=== PATIENT | male | born 1975 | race Hispanic/Latino ===

== ENCOUNTER 2023-01-27 16:03 | Emergency (ER) | payer SELFPAY ==
[2023-01-27] MEDS ORDERED: MORPHINE 4 MG/ML SYR ONE ×2 (16:27→17:53)
[2023-01-27] MEDS ORDERED: ONDANSETRON 4 MG (ODT) TAB ONE (16:28)
[2023-01-27] MEDS ORDERED: TDAP (DIPHTH,PERTUSS(ACELL),TET VAC) 0.5 ML VIAL IMVAC ONE (17:54)
--- NOTE | 2023-01-27 18:02 | RAD REPORT ---
EXAM DESCRIPTION: RAD - [facility] - 01/27/2023 4:43 pm COMPARISON: None. FINDINGS: Three views of the left hand. Small fracture and soft tissue defect at the tip of the distal phalanx second digit. There is no dislocation or periosteal reaction noted. Swelling along the second digit. No significant soft tissue gas or a radiopaque foreign body noted. IMPRESSION: Small fracture and a soft tissue defect at the tip of the distal phalanx second digit.
--- NOTE | 2023-01-27 19:12 | EDPHYS ---
Physician Documentation [facility] Name: Brandin Cardozo Jr Age: 47 yrs Sex: Male : 1975 Arrival Date: 01/27/2023 Time: 16:04 Bed 11 Private MD: ED Physician Ben Stinson HPI: 01/27 16:22 This 47 yrs old Male presents to ER via Ambulatory with complaints of Finger pm1 Injury. 16:22 The patient or guardian reports a laceration. The complaints affect the left index pm1 finger. Context: The problem was sustained at work, resulted from Accidentally cut finger on table saw. Onset: The symptoms/episode began/occurred just prior to arrival. Modifying factors: The symptoms are alleviated by pressure to area. 16:22 Associated signs and symptoms: The patient has no apparent associated signs or pm1 symptoms. Severity of symptoms: in the emergency department the symptoms have improved. The patient has experienced similar episodes in the past, a few times, to other fingers in the past. The patient has not recently seen a physician. 47-year-old male presents ER with complaints of table saw laceration injury to left second finger. Patient was turning off his table saw when the piece of wood started following, he instinctively tried to grab it to prevent it from falling and his left fingernail was impacted by the table saw resulting in laceration. Historical: - Allergies: 16:11 No Known Allergies; aa5 - PMHx: 16:11 None; aa5 - Immunization history:: Last tetanus immunization: unknown. - Social history:: Smoking status: Patient denies any tobacco usage or history of. ROS: 16:22 Constitutional: Negative for fever, chills, and weight loss. pm1 16:22 Neuro: Negative for headache, weakness, numbness, tingling, and seizure. 16:22 MS/extremity: Positive for laceration, pain, of the dorsal aspect of distal phalanx of left index finger. 16:22 Skin: Positive for laceration(s), of the dorsal aspect of distal phalanx of left index finger. 16:22 All other systems are negative. Exam: 16:22 Constitutional: This is a well developed, well nourished patient who is awake, alert, pm1 and in no acute distress. Head/Face: Normocephalic, atraumatic. 16:22 Cardiovascular: Exam negative for acute changes, Rate: normal, Rhythm: regular, Pulses: no pulse deficits are appreciated. 16:22 Respiratory: Exam negative for acute changes, respiratory distress, shortness of breath. 16:22 Musculoskeletal/extremity: Extremities: grossly normal except: noted in the dorsal aspect of distal phalanx of left index finger: laceration, Partial avulsion of fingernail, patient's nail intact in nail fold and rest was avulsed, ROM: intact in all extremities. 16:22 Neuro: Exam negative for acute changes, Orientation: is normal, Mentation: is normal, Motor: is normal, moves all fours. Vital Signs: 16:12 BP 170 / 119; Pulse 97; Resp 18 S; Temp 98.0(TE); Pulse Ox 95% on R/A; Weight 113.4 kg aa5 (R); Height 5 ft. 9 in. (175.26 cm) (R); 17:45 BP 186 / 118; Pulse 84; Resp 18; Pulse Ox 97% on R/A; eh3 18:00 BP 182 / 118; Pulse 86; Resp 18; Pulse Ox 98% on R/A; eh3 16:12 Body Mass Index 36.92 (113.40 kg, 175.26 cm) aa5 16:12 Pt restless during VS aa5 Laceration: 19:06 Wound Repair of 1cm ( 0.4in ) subcutaneous laceration to left index finger distal tip. pm1 Irregularly shaped.. Distal neuro/vascular/tendon intact. Anesthesia: Digital block administered with 3 mls of Lido/Marcaine. Wound prep: Extensive cleansing with betadine by me, Wound irrigation with saline by me, Wound explored extensively, Copious irrigation. Skin closed with 3 4-0 Prolene using simple sutures and sterile technique. Dressed with Neosporin, 4x4's, non-adherent dressing. Patient tolerated well. 19:06 Wound Repair of 1cm ( 0.4in ) avulsed laceration to left index nailbed. Irregularly pm1 shaped.. Distal neuro/vascular/tendon intact. Wound prep: Extensive cleansing with betadine by me, Wound explored extensively, Copious irrigation. Skin closed with 4 1-0 Vicryl using simple sutures and sterile technique. Dressed with Neosporin, non-adherent dressing. Patient tolerated well. MDM: 16:21 Patient medically screened. pm1 19:10 Data reviewed: vital signs. pm1 01/27 16:20 Order name: Hand Left 3 View XRAY; Complete Time: 18:03 pm1 01/27 18:04 Order name: Dressing - Wound; Complete Time: 19:40 pm1 01/27 18:04 Order name: Gloves, Sterile; Complete Time: 18:30 pm1 01/27 18:04 Order name: Prolene, Sutures; Complete Time: 18:30 pm1 01/27 18:04 Order name: Setup Suture Tray; Complete Time: 18:07 pm1 01/27 19:06 Order name: Finger Splint; Complete Time: 19:40 pm1 Administered Medications: 16:46 Drug: morphine 4 mg Route: IM; Site: left deltoid; aa5 17:45 Follow up: Response: Pain is unchanged, physician notified eh3 16:46 Drug: Ondansetron 4 mg Route: PO; aa5 17:45 Follow up: Response: No adverse reaction eh3 17:59 Drug: Tetanus-Diphtheria Toxoid Adult 0.5 ml {Automotive 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 Exp: eh3 10/15/2023. Lot #: [id number]. } Route: IM; Site: right deltoid; 18:07 Follow up: Response: (VIS) Vaccine information sheet provided today. Questions and/or 3 concerns addressed. VIS edition date: Jul 03, 2021.; No adverse reaction 17:59 Drug: morphine 4 mg Route: IM; Site: left deltoid; eh3 18:30 Follow up: Response: Pain is decreased eh3 18:30 Drug: Lidocaine (1 %) 5 ml {Note: administered by Zach Grullon CLINICAL DOCUMENTATION SPECIALIST.} Volume: 5 ml; eh3 Route: Infiltration; 18:31 Drug: Bupivacaine (0.5 %) 10 ml {Note: administered by Zach Grullon NP.} Volume: 10 eh3 ml; Route: Infiltration; Disposition Summary: 01/27/23 19:11 Discharge Ordered Location: Home pm1 Problem: new pm1 Symptoms: have improved pm1 Condition: Stable pm1 Diagnosis - Laceration without foreign body of left index finger with damage to nail pm1 - Distal tuft fracture left index finger pm1 Followup: pm1 - With: Emergency Department - When: As needed - Reason: Worsening of condition Followup: pm1 - With: Allan Wolfe MD - When: 2 - 3 days - Reason: Recheck today's complaints, Continuance of care, Re-evaluation by your physician Discharge Instructions: - Discharge Summary Sheet pm1 - Finger Fracture, Adult pm1 - Laceration Care, Adult pm1 Forms: - Medication Reconciliation Form pm1 - Thank You Letter pm1 - Antibiotic Education pm1 - Prescription Opioid Use pm1 Prescriptions: - Cephalexin 500 mg Oral Capsule - take 1 capsule by ORAL route every 6 hours for 10 days; 40 capsule; Refills: 0, pm1 Product Selection Permitted - Tylenol-Codeine #3 300 mg-30 mg Oral - take 2 tablet by ORAL route every 6 hours As needed; 20 tablet; Refills: 0, pm1 Product Selection Permitted Signatures: Dispatcher [employer] Neida Patton RN RN aa5 Zach Grullon NP CLINICAL DOCUMENTATION SPECIALIST pm1 Isabel Flaherty RN RN eh3
--- NOTE | 2023-01-27 19:12 | ER ---
Nurse's Notes [facility] Name: Brandin Cardozo Jr Age: 47 yrs Sex: Male : 1975 Arrival Date: 01/27/2023 Time: 16:04 Bed 11 Private MD: Diagnosis: Laceration without foreign body of left index finger with damage to nail;Distal tuft fracture left index finger Presentation: 01/27 16:12 Chief complaint: Patient states: "I cut my finger with a table saw". Partial amputation aa5 noted to tip of left index finger, moderate bleeding noted, bleeding controlled. 16:12 Acuity: NOY 2 aa5 16:12 Coronavirus screen: At this time, the client does not indicate any symptoms associated aa5 with coronavirus-19. Ebola Screen: Patient denies travel to an Ebola-affected area in the 21 days before illness onset. Initial Sepsis Screen: Does the patient meet any 2 criteria? No. Patient's initial sepsis screen is negative. Does the patient have a suspected source of infection? No. Patient's initial sepsis screen is negative. Risk Assessment: Do you want to hurt yourself or someone else? Patient reports no desire to harm self or others. Onset of symptoms was January 27, 2023. 16:12 Method Of Arrival: Ambulatory aa5 Triage Assessment: 17:45 General: Appears in no apparent distress. uncomfortable, Behavior is calm, cooperative, eh3 appropriate for age. Injury Description: Amputation sustained to palmar aspect of distal phalanx of left index finger and dorsal aspect of distal phalanx of left index finger is partial, was sustained 30-60 minutes ago. Historical: - Allergies: 16:11 No Known Allergies; aa5 - PMHx: 16:11 None; aa5 - Immunization history:: Last tetanus immunization: unknown. - Social history:: Smoking status: Patient denies any tobacco usage or history of. Screenin:45 [facility] ED Fall Risk Assessment (Adult) Score/Fall Risk Level 0 - 2 = Low Risk. Abuse eh3 screen: Denies threats or abuse. Denies injuries from another. Nutritional screening: No deficits noted. Tuberculosis screening: No symptoms or risk factors identified. Assessment: 17:45 General: Appears in no apparent distress. uncomfortable, Behavior is calm, cooperative, eh3 appropriate for age. Pain: Complains of pain in left index finger Pain radiates to left hand Pain currently is 8 out of 10 on a pain scale. Neuro: Level of Consciousness is awake, alert, obeys commands, Oriented to person, place, time, situation. Cardiovascular: Capillary refill < 3 seconds Patient's skin is warm and dry. Respiratory: Airway is patent Respiratory effort is even, unlabored, Respiratory pattern is regular, symmetrical. GI: Abdomen is round non-distended. : No signs and/or symptoms were reported regarding the genitourinary system. EENT: No signs and/or symptoms were reported regarding the EENT system. Derm: Skin is pink, warm \\T\\ dry. Wound noted dorsal aspect of distal phalanx of left index finger and palmar aspect of distal phalanx of left index finger. Musculoskeletal: Circulation, motion, and sensation intact. Range of motion: intact in all extremities. 18:45 Reassessment: Patient appears in no apparent distress at this time. Patient and/or eh3 family updated on plan of care and expected duration. Pain level reassessed. Patient is alert, oriented x 3, equal unlabored respirations, skin warm/dry/pink. Vital Signs: 16:12 BP 170 / 119; Pulse 97; Resp 18 S; Temp 98.0(TE); Pulse Ox 95% on R/A; Weight 113.4 kg aa5 (R); Height 5 ft. 9 in. (175.26 cm) (R); 17:45 BP 186 / 118; Pulse 84; Resp 18; Pulse Ox 97% on R/A; eh3 18:00 BP 182 / 118; Pulse 86; Resp 18; Pulse Ox 98% on R/A; eh3 16:12 Body Mass Index 36.92 (113.40 kg, 175.26 cm) aa5 16:12 Pt restless during VS aa5 ED Course: 16:04 Patient arrived in ED. am2 16:11 Gisselle Toro PA-C is PHCP. sb4 16:11 Ben Stinson MD is Attending Physician. sb4 16:11 Arm band placed on. aa5 16:12 Triage completed. aa5 16:17 Zach Grullon NP is PHCP. pm1 16:17 Ben Stinson MD is Attending Physician. pm1 16:44 Hand Left 3 View XRAY In Process Unspecified. EDMS 17:36 Isabel Flaherty, RN is Primary Nurse. eh3 17:45 Patient has correct armband on for positive identification. Bed in low position. Call eh3 light in reach. Side rails up X 1. Pulse ox on. NIBP on. Door closed. Noise minimized. Lights dimmed. Diet: Patient given water. Tolerated well. 18:30 Assist provider with laceration repair. eh3 19:00 Patient did not have IV access during this emergency room visit. eh3 19:10 Allan Wolfe MD is Referral Physician. pm1 Administered Medications: 16:46 Drug: morphine 4 mg Route: IM; Site: left deltoid; aa5 17:45 Follow up: Response: Pain is unchanged, physician notified eh3 16:46 Drug: Ondansetron 4 mg Route: PO; aa5 17:45 Follow up: Response: No adverse reaction eh3 17:59 Drug: Tetanus-Diphtheria Toxoid Adult 0.5 ml {Shortage Worker: [employer] Exp: 3 10/15/2023. Lot #: [id number]. } Route: IM; Site: right deltoid; 18:07 Follow up: Response: (VIS) Vaccine information sheet provided today. Questions and/or eh3 concerns addressed. VIS edition date: Jul 03, 2021.; No adverse reaction 17:59 Drug: morphine 4 mg Route: IM; Site: left deltoid; eh3 18:30 Follow up: Response: Pain is decreased eh3 18:30 Drug: Lidocaine (1 %) 5 ml {Note: administered by Zach Grullon NP.} Volume: 5 ml; eh3 Route: Infiltration; 18:31 Drug: Bupivacaine (0.5 %) 10 ml {Note: administered by Zach Grullon NP.} Volume: 10 eh3 ml; Route: Infiltration; Medication: 17:45 Vaccine Information Statement (VIS) provided today. Questions and/or concerns eh3 addressed. VIS edition date: July 03, 2021. Outcome: 19:11 Discharge ordered by . pm1 19:30 Discharged to home ambulatory. eh3 19:30 Condition: stable 19:30 Discharge instructions given to patient, Instructed on discharge instructions, follow up and referral plans. medication usage, Demonstrated understanding of instructions, follow-up care, medications. 19:40 Patient left the ED. eh3 Signatures: Dispatcher [employer] Neida Patton RN RN aa5 Zach Grullon, [employer] REPAIRER pm1 Genny Paniagua am2 Isabel Flaherty RN RN eh3 Gisselle Toro PA-C [employer] sb4 Corrections: (The following items were deleted from the chart) 16:18 16:12 Pulse 97bpm; Resp 18bpm; Spontaneous; Pulse Ox 95% RA; Temp 98.0F Temporal; 113.4 aa5 kg Reported; Height 5 ft. 9 in. Reported; BMI: 36.9; aa5 18:31 18:31 Bupivacaine (0.5 %) 10 ml 10 ml Infiltration 10 ml 3 3
[2023-01-27 20:06] VITALS: O2SAT 98
[2023-01-27 20:11] VITALS: BP 126/85; TEMP 98.1
== END 2023-01-27 19:40 | disposition home or self-care (01) ==
LOC: ER 16:03
PROC: 0HQGXZZ Repair Left Hand Skin, External Approach (ICD-10-PCS; principal; 2023-01-27)
DX: S61.311A Laceration without foreign body of left index finger with damage to nail, initial encounter (principal); S62.631A Displaced fracture of distal phalanx of left index finger, initial encounter for closed fracture; Z23 Encounter for immunization
CPT/HCPCS: 90471; 96372; 99284; Q0162

== ENCOUNTER 2023-02-12 16:20 | Emergency (ER) | payer SELFPAY ==
--- OUTSIDE RECORDS SUMMARY | 2023-02-12 16:26 | XMS REPORT | Continuity of Care Document ---
:1975 Author Organization [facility] t Address [address] [facility] [address] [place] [address] Care Team Providers Name Role Phone Deena Pichardo Attending Clinician Unavailable Ralph Crenshaw Attending Clinician Unavailable MICHELLE RAINES D.O. Attending Clinician Unavailable ELIZABETH JUDGE Admitting Clinician Unavailable Payers Payer Name Policy Type Policy Number Effective Date Expiration Date S ource Problems This patient has no known problems. Allergies, Adverse Reactions, Alerts Allergy Allergy Status Severity Reaction(s) Onset Inactive Treating Comm ents Source Name Type Date Date Clinician No Known DA Active U 2020-11 [facility] Allergie 01-19 [facility] 00:00: [facility] 00 are [place] Medications This patient has no known medications. Procedures This patient has no known procedures. Encounters Start End Encounter Admission Attending Care Care Encounter Source Date/Time Date/Time Type Type Clinicians Facility Department ID 2022-03-11 2022-03-11 Emergency EM KEYSHA Pichardo [id number] [facility] 18:01:00 18:58:00 Deena Gill [facility] are [place] 2021-11-18 2021-11-18 Emergency EM KEYSHA Crenshaw [id number] [facility] 04:45:00 07:15:00 Ralph Gill [facility] are [place] 2018-12-06 2018-12-06 Emergency E [facility] [id number] [facility] 12:56:00 12:56:00 2017-11-02 2017-11-02 [facility] [id number] [place] 09:30:00 09:30:00 t; MICHELLE RAINES, Surgery Physi ci Gerry MARTINEZ Specialty ans D.O. Results Test Description Test Time Test Comments Results Result Comments Source RAPID PLASMA REAGIN 2022-03-11 19:49:00 Test Item Value Reference Range Interpretation Comme nts RAPID PLASMA REAGIN (test code = RPR) NONREACTIVE NONREACTIVE URINALYSIS [id number] 07:10:00 Test Item Value Reference Range Interpretation Comments UA COLOR (test code = Yellow YELLOW COLU) UA APPEARANCE (test CLEAR CLEAR code = APPU) UA GLUCOSE DIPSTICK 3+ MG/DL NEGATIVE A (test code = DGLUU) UA BILIRUBIN DIPSTICK NEG NEGATIVE (test code = BILU) UA KETONE DIPSTICK TRACE MG/DL NEGATIVE A (test code = KETU) UA SPECIFIC GRAVITY 1.028 1.000-1.030 (test code = SGU) UA BLOOD DIPSTICK 2+ NEGATIVE A (test code = PAPO) UA PH DIPSTICK (test 5.5 4.5-8.5 code = KAIN) UA PROTEIN DIPSTICK 1+ MG/DL NEGATIVE A (test code = PROU) UA UROBILINOGEN NORMAL EU/dL See_Comment [Automated DIPSTICK (test code = messag e] The system URO) which generated this result transmitted reference range : <=1.0. The reference range was not used to interpret this result as normal/abnormal . UA NITRITE DIPSTICK NEG NEGATIVE (test code = ASHLEY) UA LEUKOCYTE ESTERASE NEG NEGATIVE DIPSTICK (test code = LEUU) UA WBC (test code = 0-3 /HPF 0-3 WBCU) UA RBC (test code = 10-20 /HPF 0-3 A RBCU) UA BACTERIA (test NONE SEEN /HPF NONE SEEN code = BACU) UA SQUAMOUS CELLS NONE SEEN /HPF NONE-FEW (test code = SQU) UA MUCUS (test code = RARE /LPF NONE-FEW MUCU) CBC W/AUTO [id number] 06:41:00 Test Item Value Reference Range Interpretation Comments WHITE BLOOD CELL (test code = WBC) 8.77 K/mm3 5.0-12.0 N RED BLOOD CELL (test code = RBC) 6.24 M/mm3 4.70-6.10 H HEMOGLOBIN (test code = HGB) 15.7 G/DL 14.0-18.0 N HEMATOCRIT (test code = HCT) 47.6 % 38.8-50.0 N MEAN CELL VOLUME (test code = MCV) 76 fL 80-94 L MEAN CELL HGB (test code = MCH) 25.2 PGM 27-31 L MEAN CELL HGB CONCENTRATION (test 33.0 G/DL 33-37 N code = MCHC) RED CELL DISTRIBUTION WIDTH (test 13.6 % 11.6-16.2 N code = RDW) PLATELET COUNT (test code = PLT) 267 K/mm3 130-400 N MEAN PLATELET VOLUME (test code = 9.5 fl 7.4-10.4 N MPV) NEUTROPHIL % (test code = NT%) 83.7 % 43-65 H IMMATURE GRANULOCYTE % (test code 0.7 % 0.0-2.0 N = IG%) LYMPHOCYTE % (test code = LY%) 5.9 % 20.5-45.5 L MONOCYTE % (test code = MO%) 8.1 % 5.5-11.7 N EOSINOPHIL % (test code = EO%) 0.8 % 0.9-2.9 L BASOPHIL % (test code = BA%) 0.8 % 0.2-1.0 N NUCLEATED RBC % (test code = 0.0 % 0-1.0 N NRBC%) NEUTROPHIL # (test code = NT#) 7.34 K/mm3 2.2-4.8 H LYMPHOCYTE # (test code = LY#) 0.52 K/mm3 1.3-2.9 L MONOCYTE # (test code = MO#) 0.71 K/mm3 0.3-0.8 N EOSINOPHIL # (test code = EO#) 0.07 K/MM3 0.0-0.2 N BASOPHIL # (test code = BA#) 0.07 K/mm3 0.0-0.1 N - CT ABD PELVIS W/O [id number] 06:25:00 [facility] : 1975 Sex: MPatientName: ALBINA VELASCO Unit No: [id number] EXAMS: CPT: [id number] CT ABD PELVIS W/O CONT [id number] CT abdomen and pelvis without contrast, 11/18/2021. Clinical: Right flank pain. Comment: Noncontrast transaxial plus sagittal/coronal reformatted images were obtained. The lung bases are free of active disease. The liver, spleen, adrenal glands, pancreas, aorta and IVC appear within normal limits. There are multiple right renal stones, the largest measuring 9 mm. There is mild right hydronephrosis/hydroureter secondary to a 1 mm distal ureteral stone. No left renal or perirenal abnormalities are detected. The gallbladder is identified. There is no biliary duct dilatation, ascites or significant retroperitoneal lymphadenopathy. There is no gastric distention, small bowel obstruction or right lower quadrantinflammatory changes. The colon is nondistended. The bladder is decompressed. The regional skeleton is intact. All CT scans at this facility are performed using dose optimization techniques including the following: Automated exposure control. IMPRESSION: Right nephrolithiasis. Minimal right hydronephrosis/hydroureter secondary to a tiny distal ureteral stone. at 0625 Reported and signed by: Bandar Delgadillo MD CC: Ralph Crenshaw MD; UndefinedProvider Technologist: Isidro Kline CTDI: 17.10 DLP: 1033.80Trscr Dt/Tm: 11/18/2021 (0625) by:[email or web address] Orig Print D/T: S: 11/18/2021 (0628) BATCH NO: N/A Name: ALBINA VELASCO [facility] [place] Phys: [email or web address] - Ralhp Crenshaw MD [address] [facility] : 1975 Age: 46 Sex: M [place] Loc: T.ERS Exam Date: 11/18/2021 Status: REG ER PH: FAX: PAGE 1 Signed ReportCoronavirus 2019 nCoV [id number] 06:17:00 Test Item Value Reference Range Interpretation Comments Coronavirus 2019 Positive NEGATIVE A Critical Va lue reported nCoV Bedside (test toFirst N yamila:YU Last code = 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 THE ID NO W COVID-19 EUA HAS NOT BEE N FDA CLEARED ORAPPROVED. IT HAS BEEN AUTHORIZED BY T [facility] UNDER ANEMERGENCY USE AUTHORIZATION F OR USE BY AUTHORIZEDLABOR ATORIES AND PATIENT [facility]ARE [facility]. THE TEST HAS BEENAU THORIZED ONLY FOR THE DETECTI ON OF NUCLEIC ACID FROMSARS-C oV-2, NOT FOR ANY OTHER VIRUS ES OR PATHOGENS, AND ISONLY AUTHORIZED FOR THE DURATION OF THE DECLARAT ION THATCIRCUMSTANC ES EXIST JUSTIFYING THE AUTHORIZATION OFEMERGENCY USE OF IN VITRO DIAGNOSTIC TEST S FOR DETECTIONAND/OR DIAGNOSIS OF COVID-19 UNDER SECTION 564(B)(1) OF U.[place]C. 360bbb-3 (b)(1), UNLESS THE AUTH ORIZATION ISTERMINATED OR REVOKED SOONER.Negative results should be treat ed as presumptive and , ifinconsistent with clinical signs and sympt oms or necessaryfor pa tient managmeent, alan uld be tested with differenta uthorizd or cleared molecul ar tests. Negative result s donot preclude SARS-C ov-2 infection and s hould not be used asthe sole basis for patient managem ent decisions. Nega tiveresults should be consi dered in the context of a pa tient'srecent exposures, hist ory and presence of cli nical signs andsymptons con sistent with COVID-19. COMPREHENSIVE METABOLIC [id number] 06:06:00 Test Item Value Reference Range Interpretation Comments SODIUM (test code = 137 mmol/L 136-145 N NA) POTASSIUM (test 3.4 mmol/L 3.4-4.5 N code = K) CHLORIDE (test code 103 mmol/L 98-107 N = CL) CARBON DIOXIDE 26 mmol/l 20-31 N (test code = CO2) GLUCOSE (test code 259 mg/dL 74-106 H = GLU) BLOOD UREA NITROGEN 12 mg/dL 9-23 N (test code = BUN) GLOMERULAR >=60 max >60 The estimated FILTRATION RATE estimate glomerular (test code = GFR) filtration rate is computed usingpatient ra ce, age (>18), sex, and serum creatinin e. If anyof the ne eded data elements a re missing the Laboratory julianne ot compute an estimation of t he glomerular filtration rate . CREATININE (test 1.11 mg/dL 0.70-1.30 N code = CREAT) TOTAL PROTEIN (test 7.3 g/dL 5.7-8.2 N code = PROT) ALBUMIN (test code 4.3 g/dl 3.4-5.0 N = ALB) CALCIUM (test code 9.7 mg/dL 8.7-10.4 N = CA) BILIRUBIN TOTAL 0.6 mg/dL 0.3-1.2 N (test code = BILT) SGOT/AST (test code 32 U/L 0-34 N = AST) SGPT/ALT (test code 31 U/L 10-49 N = ALT) ALKALINE 90 U/L 46-116 N PHOSPHATASE (test code = ALKP) [id number] 06:06:00 Test Item Value Reference Range Interpretation Comments PHOSPHOROUS (test code = PHOS) 2.7 mg/dL 2.4-5.1 N [id number] 06:06:00 Test Item Value Reference Range Interpretation Comments MAGNESIUM (test code = MAG) 1.7 mg/dL 1.6-2.6 N - XR SINUSES [id number] 05:26:00 [facility] : 1975 Sex: MPatientName: ALBINA VELASCO Unit No: [id number] EXAMS: CPT: [id number] XR SINUSES 3+V 06436 Paranasal sinuses, 4 views, 11/18/2021. Clinical: Sinus pressure. Comment: There is a retention cyst and/or polyp arising off the roof of the right antrum. There is mucosal thickening along the anterolateral wall ofthe right antrum. No air-fluid levels are present. The other visualized paranasal sinuses and mastoid s are well pneumatized. The regional skeleton is intact. The sella turcica appears of normal size and shape. IMPRESSION: Partial opacification of the right antrum as described above. at 0526 Reported and signed by: Bandar Delgadillo MD CC: Ralph Crenshaw MD; Undefined Provider Technologist: Negrito Rivera Fluoro Time: DAP (Gy m2): Air Kerma (mGy): Trscr Dt/Tm: 11/18/2021 (05) by:[email or web address] Orig Print D/T: S: 11/18/2021 (0529) BATCH NO: N/A Name: ALBINA VELASCO [facility] [employer] Phys: [email or web address] - Ralph Crenshaw MD [address] [facility] : 1975 Age: 46 Sex: [place] Loc: [facility] Exam Date: 11/18/2021 Status: REG ERPH: FAX: PAGE 1 Signed Report- XR CHEST 2 [id number] 05:24:00 [facility] : 1975 Sex: MPatientName: ALBINA VELASCO Unit No: [id number] EXAMS: CPT: [id number] XR CHEST 2 V [id number] CHEST 2 VIEWS, 11/18/2021. COMPARISON: None. CLINICAL: Cough. Dizziness. COMMENT: The heart, mediastinum, hilar regions and pulmonary vasculature appear within normal limits. The lungs are free of active disease. The bony thorax is intact. IMPRESSION: No evidence to suggest active cardiopulmonary disease. at 0524 Reported and signed by: Bandar Delgadillo MD CC: Ralph Crenshaw MD; Undefined Provider Technologist: Negrito Rivera Fluoro Time: DAP (Gy m2): AirKerma (mGy): Trscr Dt/Tm: 11/18/2021 (0524) by:[email or web address] Orig Print D/T: S: 11/18/2021 (0527) BATCHNO: N/A Name: ALBINA VELASCO [facility] [place] Phys: [email or web address] - Ralph Crenshaw MD [address] [facility] : 1975 Age: 46 Sex: M [place] Loc: T.ERS Exam Date: 11/18/2021 Status:REG ER PH: FAX: PAGE 1 Signed Report
--- NOTE | 2023-02-12 16:42 | ER ---
Nurse's Notes [facility] Name: Brandin Cardozo Jr Age: 47 yrs Sex: Male : 1975 Arrival Date: 02/12/2023 Time: 16:20 Bed IW1 Private MD: Diagnosis: Encounter for removal of sutures Presentation: 02/12 16:28 Chief complaint: Patient states: Needs stitches removed from L hand 2nd digit. No ll1 redness, fever, drainage. Coronavirus screen: Vaccine status: Patient reports receiving the 2nd dose of the covid vaccine. Client denies travel out of the [place] in the last 14 days. At this time, the client does not indicate any symptoms associated with coronavirus-19. Ebola Screen: Patient denies travel to an Ebola-affected area in the 21 days before illness onset. Initial Sepsis Screen: Does the patient meet any 2 criteria? No. Patient's initial sepsis screen is negative. Does the patient have a suspected source of infection? Yes: Skin breakdown/wound. Risk Assessment: Do you want to hurt yourself or someone else? Patient reports no desire to harm self or others. Onset of symptoms was January 26, 2023. 16:28 Method Of Arrival: Ambulatory ll1 16:28 Acuity: NOY 5 ll1 Triage Assessment: 16:31 General: Appears in no apparent distress. Behavior is calm, cooperative, appropriate ll1 for age. Pain: Complains of pain in left hand Pain currently is 3 out of 10 on a pain scale. Quality of pain is described as aching. Derm: Skin is pink, warm \T\ dry. Musculoskeletal: Circulation, motion, and sensation intact. Capillary refill < 3 seconds. Historical: - Allergies: 16:27 No Known Allergies; ll1 - PMHx: 16:27 Asthma; spinal menigitis; ll1 - PSHx: 16:27 hernia repair; ll1 - Immunization history:: Client reports receiving the 2nd dose of the Covid vaccine. - Social history:: Smoking status: Patient denies any tobacco usage or history of. Screenin:32 [facility] ED Fall Risk Assessment (Adult) Score/Fall Risk Level 0 - 2 = Low Risk ll1 Oriented to surroundings, Maintained a safe environment, Educated pt \T\ family on fall prevention, incl call for assistance when getting out of bed, Hourly rounding (assess needs \T\ fall precautionary measures) done. Abuse screen: Denies threats or abuse. Nutritional screening: No deficits noted. Tuberculosis screening: No symptoms or risk factors identified. Assessment: 16:33 Reassessment: No changes from previously documented assessment. Dr. Camarena in triage ll1 removing stitches. Vital Signs: 16:28 BP 170 / 100; Pulse 85; Resp 17; Temp 97.7; Pulse Ox 96% ; Weight 120.2 kg; Height 5 ll1 ft. 9 in. ; Pain 3/10; 16:28 Body Mass Index 39.13 (120.20 kg, 175.26 cm) ll1 16:28 Pain Scale: Adult ll1 ED Course: 16:20 Patient arrived in ED. am2 16:22 Raciel Camarena MD is Attending Physician. bs3 16:31 Triage completed. ll1 16:31 Arm band placed on. ll1 16:32 Patient has correct armband on for positive identification. Cardiac monitoring not ll1 applicable on this patient. 16:32 No provider procedures requiring assistance completed. Patient did not have IV access ll1 during this emergency room visit. 16:41 Inga De Leon, RN is Primary Nurse. ll1 Administered Medications: No medications were administered Medication: 16:32 VIS not applicable for this client. ll1 Outcome: 16:36 Discharged to home ambulatory. ll1 16:36 Condition: stable 16:36 Discharge instructions given to patient, Instructed on discharge instructions, follow up and referral plans. Demonstrated understanding of instructions, follow-up care, wound care. 16:41 Discharge ordered by . bs3 16:41 Patient left the ED. ll1 Signatures: Genny Paniagua am2 Inga De Leon, LINA RN ll1 Raciel Camarena MD MD bs3
--- NOTE | 2023-02-12 16:42 | EDPHYS ---
Physician Documentation [facility] Name: Brandin Cardozo Jr Age: 47 yrs Sex: Male : 1975 Arrival Date: 02/12/2023 Time: 16:20 Bed IW1 Private MD: ED Physician Raciel Camarena HPI: 02/12 16:39 This 47 yrs old Male presents to ER via Ambulatory with complaints of Suture bs3 Removal. 16:39 Denies any other complaints notes that it is left second digit he notes that he was bs3 supposed to follow-up last week but did not have time he has been washing it gently at home. Historical: - Allergies: 16:27 No Known Allergies; ll1 - PMHx: 16:27 Asthma; spinal menigitis; ll1 - PSHx: 16:27 hernia repair; ll1 - Immunization history:: Client reports receiving the 2nd dose of the Covid vaccine. - Social history:: Smoking status: Patient denies any tobacco usage or history of. ROS: 16:39 Constitutional: Negative for fever, chills bs3 16:39 All other systems are negative. Exam: 16:39 Constitutional: This is a well developed, well nourished patient who is awake, alert, bs3 and in no acute distress. Head/Face: Normocephalic, atraumatic. MS/ Extremity: Pulses equal, no cyanosis. He is dizzy has a healing laceration/avulsion there is significant dried blood no erythema no discharge the wound has been well-healed however the sutures are slightly buried per the patient there are 3 nondissolvable sutures Vital Signs: 16:28 BP 170 / 100; Pulse 85; Resp 17; Temp 97.7; Pulse Ox 96% ; Weight 120.2 kg; Height 5 ll1 ft. 9 in. ; Pain 3/10; 16:28 Body Mass Index 39.13 (120.20 kg, 175.26 cm) ll1 16:28 Pain Scale: Adult ll1 Procedures: 16:39 Suture/Staple removal: Removed 3 sutures, from left hand, site appears well healed, bs3 dressed with Patient tolerated well. MDM: 16:22 Patient medically screened. bs3 16:39 Data reviewed: vital signs, nurses notes. ED course: Sutures removed without bs3 complication patient tolerated the procedure well advised to start soaking his wound clean with soap and water return precautions given. Administered Medications: No medications were administered Disposition Summary: 02/12/23 16:41 Discharge Ordered Location: Home bs3 Problem: new bs3 Symptoms: have improved bs3 Condition: Stable bs3 Diagnosis - Encounter for removal of sutures bs3 Followup: bs3 - With: Private Physician - When: As needed - Reason: Re-evaluation by your physician Discharge Instructions: - Discharge Summary Sheet bs3 - Suture Removal, Care After bs3 Forms: - Medication Reconciliation Form bs3 - Thank You Letter bs3 - Antibiotic Education bs3 - Prescription Opioid Use bs3 Signatures: Inga De Leon RN RN ll1 Raciel Camarena MD MD bs3
[2023-02-12 16:53] VITALS: BP 170/100; TEMP 97.7; O2SAT 96
== END 2023-02-12 16:41 | disposition home or self-care (01) ==
LOC: ER 16:20
DX: Z48.02 Encounter for removal of sutures (principal)
CPT/HCPCS: 99281